=== PATIENT | male | born 1940 | race Caucasian/White ===

== ENCOUNTER 2020-06-06 16:29 | Inpatient (IN) | payer MEDICARE, OTHER, SELFPAY ==
[2020-06-06] VITALS (23 sets, daily range): BP systolic 101–147; BP diastolic 65–80; PULSE 97–119; RESP 16–42; TEMP 36.1–37.3; O2SAT 68–98; BMI 23.2
--- NOTE | ~2020-06-06 | XR_ITS ---
EXAMINATION: XR chest 1V portable DATE: 06/06/2020 17:31 INDICATION: Shortness of breath. TECHNIQUE: A single frontal view of the chest was obtained. COMPARISON: None. FINDINGS: The lung volumes are normal. There are lucencies in the lungs, consistent with emphysema. T here is a diffuse interstitial pattern in the lungs. There is a 6 cm mass overlying the left ilium. N o pleural effusion or pneumothorax. The heart size is normal. Median sternotomy wires and mediastinal surgical clips are seen, likely from prior coronary artery bypass grafting. There is a stent graft i n abdominal aorta. IMPRESSION: 1. 6 cm mass overlying the left hilum, consistent with primary bronchogenic carcinoma. Noncontrast ch est CT is recommended. I called this result to Dr. Box. 2. Diffuse interstitial pattern in the lungs, likely mild pulmonary edema or chronic interstitial rei g disease superimposed on emphysema. Reviewed, dictated and finalized at location [facility] IMPRESSION: 1. 6 cm mass overlying the left hilum, consistent with primary bronchogenic car cinoma. Noncontrast chest CT is recommended. I called this result to Dr. Rudy kahn 2. Diffuse interstitial pattern in the lungs, likely mild pulmonary edema or ch ronic interstitial lung disease superimposed on emphysema.
--- NOTE | ~2020-06-06 | CT_ITS ---
EXAMINATION: CTA chest PE protocol DATE: 06/06/2020 19:34 INDICATION: Shortness of breath. TECHNIQUE: Computed tomography angiography (CTA) of the chest was performed with 100 mL Omnipaque-350 intravenous contrast timed to evaluate the pulmonary arteries. Coronal maximum intensity projection 3D-reconstructions were created by the technologist. Automated exposure control and iterative reconst ruction technique were employed. The dose-length product was 256.11 mGy-cm. COMPARISON: Chest single view 06/06/2020 FINDINGS: There is severe emphysema. There is a 6.8 x 5.1 cm mass in perihilar left upper lobe with c omponent in left mainstem bronchus and involvement of the left main pulmonary artery. There is mild s carring at the lung apices. A calcified right lung nodule is consistent with old granulomatous diseas e. There are groundglass and reticular opacities in all lobes with a lower lung predominance. No pleu ral effusion. The heart size is normal. No pericardial effusion. There are coronary artery calcificat ions. There are changes of coronary bypass grafting. There is no pulmonary embolus. Partially visuali zed is a 7.0 cm fusiform aneurysm of abdominal aorta with stent graft. There are stents in the renal arteries. There is a 2.1 cm mass in right adrenal gland measuring soft tissue attenuation. Pectus exc avatum is noted. There is a chronic burst fracture of T7. There is thoracic kyphosis and mild spondyl osis. IMPRESSION: 1. No pulmonary embolus. 2. 6.8 x 5.1 cm mass in perihilar left lung upper lobe. Bronchoscopy is recommended. 3. 2.1 cm right adrenal mass, which may be an adenoma or metastatic disease. Comparison with outside imaging is recommended. 4. Severe emphysema. 5. Diffuse lung disease with a lower lung predominance, consistent with pulmonary edema versus pneumo bk. Reviewed, dictated and finalized at location [facility] IMPRESSION: 1. No pulmonary embolus. 2. 6.8 x 5.1 cm mass in perihilar left lung upper lobe. Bronchoscopy is recomme nded. 3. 2.1 cm right adrenal mass, which may be an adenoma or metastatic disease. Co mparison with outside imaging is recommended. 4. Severe emphysema. 5. Diffuse lung disease with a lower lung predominance, consistent with pulmona ry edema versus pneumonia.
--- NOTE | ~2020-06-06 | XR_ITS ---
XR chest 1V portable DATE: 06/08/2020 12:21 INDICATION: Covid 19. COPD. Shortness of breath. TECHNIQUE: 05/31/2020 portable AP chest at 1221 hours COMPARISON: 06/06/2020 CT chest FINDINGS: Again noted is a large left upper lobe lung mass superimposing the left hilum and perihilar area. Status post sternotomy Bilateral hyperinflation consistent with COPD. Bilateral chronic interstitial changes likely due to c hronic interstitial fibrosis. Bilateral apical capping, left greater than right. Aortic arch calcification. Distal descending thoracic and abdominal aortic endovascular stent. Diffuse osteopenia. IMPRESSION: Large left upper lobe malignant mass COPD and chronic interstitial changes Reviewed, dictated and finalized at location [facility]
--- NOTE | 2020-06-06 16:52 | ECG_ITS ---
Measurements Intervals Virgie Rate: 99 P: 83 NM: 134 QRS: -33 QRSD: 86 T: -14 QT: 357 QTc: 459 Interpretive Statements SINUS RHYTHM FREQUENT ATRIAL PREMATURE COMPLEXES LEFT AXIS DEVIATION LOW QRS VOLTAGE IN PRECORDIAL LEADS CANNOT RULE OUT SEPTAL INFARCT, AGE INDETERMINATE BORDERLINE T WAVE ABNORMALITY- ANT/INF LEADS BASELINE ARTIFACT- I, II, III, AVR, AVL, AVF, V1-V3, V6 ABNORMAL ECG Electronically Signed On 06-07-2020 8:02:29 [employer]VAGE CLERK by Dmitriy Gleason D.O.
--- NOTE | 2020-06-06 16:58 | ED.SOB ---
HPI - SOB/Dyspnea General Chief Complaint: Shortness of Breath/Dyspnea <Shakeel Box MD - Last Filed: 06/06/20 19:02> Stated Complaint: SOB <Shakeel Box MD - Last Filed: 06/06/20 19:02> History of Present Illness HPI Narrative: Patient is an 80-year-old male who presents ER with shortness of breath. Ongoing for a week. Progressing each day. Saw his primary care doctor couple days ago. He was started on Levaquin as well as albuterol. He was not tested for Covid. Patient reports he has not left his house in 2 months due to fear of Covid. Reports his leaves to get food but otherwise they are isolated no one comes to visit. He has had no fevers or chills or sweats. Denies productive cough but has had frequent cough. In route EMS provided patient with a nebulizer treatment as well as Solu-Medrol. <Shakeel Box MD - Last Filed: 06/06/20 19:02> Related Data Home Medications: Home Medications Medication Instructions Recorded Confirmed albuterol sulfate 2 puff INHALATION TID 06/06/20 06/06/20 aspirin [Adult Aspirin EC Low 81 mg PO DAILY 06/06/20 06/06/20 Strength] atorvastatin 40 mg PO HS 06/06/20 06/06/20 levofloxacin 500 mg PO DAILY 06/06/20 06/06/20 metoprolol succinate 50 mg PO DAILY 06/06/20 06/06/20 <Shakeel Box MD - Last Filed: 06/06/20 19:02> Allergies/Adverse Reactions: Allergies Allergy/AdvReac Type Severity Reaction Status Date / Time No Known Allergies Allergy Verified 06/06/20 17:54 <Shakeel Box MD - Last Filed: 06/06/20 19:02> Review of Systems Review of Systems: All systems reviewed & are unremarkable except as noted in HPI and below <Shakeel Box MD - Last Filed: 06/06/20 19:02> Constitutional: Constitutional: Denies chills, Denies fever(s) and Reports weakness <Shakeel Box MD - Last Filed: 06/06/20 19:02> ENT: Denies nasal congestion and Denies sore throat <Shakeel Box MD - Last Filed: 06/06/20 19:02> Cardiovascular: Cardiovascular: Denies chest pain and Denies radiating jaw, neck or arm pain <Shakeel Box MD - Last Filed: 06/06/20 19:02> Respiratory: Respiratory: Reports cough, Reports dyspnea and Denies wheezing <Shakeel Box MD - Last Filed: 06/06/20 19:02> Gastrointestinal: Gastrointestinal: Denies abdominal pain, Denies diarrhea, Denies nausea and Denies vomiting <Shakeel Box MD - Last Filed: 06/06/20 19:02> PMFSH Past Medical History Medical History: Medical History (Updated 06/06/20 @ 20:43 by Ha Saleem MD) AAA (abdominal aortic aneurysm) H/O: HTN (hypertension) Hypercholesterolemia <Shakeel Box MD - Last Filed: 06/06/20 19:02> Surgical History Surgical History: Surgical History H/O neck surgery History of AAA (abdominal aortic aneurysm) repair Hx of CABG <Shakeel Box MD - Last Filed: 06/06/20 19:02> Family History Family History: Family History (Updated 06/06/20 @ 22:29 by Karmen Umanzor RN) Other Unknown family medical history <Shakeel Box MD - Last Filed: 06/06/20 19:02> Social History Social History: Social History Smoking packs per day: 1 Smoking cigarettes per day: 20.0 Years smoked: 15 Smoking pack-years: 15.00 Smoking status: Former smoker Alcohol intake: never Substance use: never Gender identity (if verbalized by the patient): Male Spiritual care concerns: No <Shakeel Box MD - Last Filed: 06/06/20 19:02> Exam Narrative: Exam Narrative: GENERAL: ill-appearing, well-nourished, and in moderatedistress. HEAD: Normocephalic, atraumatic. EYES: PERRL and EOMI. CHEST: Fine crackles bilateral bases, clear in the apices. Moderate respiratory distress. HEART: Tachycardic and regular. Normal peripheral pulses. ABDOMEN: Soft, nontender, nondistended. EXTREMITIE
--- NOTE | 2020-06-06 17:05 | PC.NURSE ---
RT at bedside for abg's and to place patient on bipap. Pt's blood collected and sent and pt covid swabbed prior to bipap.
--- NOTE | 2020-06-06 17:09 | PC.NURSE ---
Pt placed on bipap per RT 22/02/rate 14/o2 increased to 70%. Pt's pulse ox increases immediately to 89%. Pt states after approx 5 minutes that he's breathing easlier at present.
[2020-06-06 17:12] LABS: Alveolar/Arterial O2 Gradient 241.9 mmHg; Base Excess ABG -2.5 mEq/l (+/-2.0); Carboxyhemoglobin 0.8 % THb (0-2.0); Fractional Inspired Oxygen 44 %; HCO3 ABG 18.2 mEq/l (22.0-26.0); Methemoglobin ABG 0.3 %THb (0-1.5); Oxygen Content ABG 17.7 %vol (16.0-22.0); Oxyhemoglobin 81.8 % THb (90.0-100.0); PO2 FiO2 Ratio Arterial Blood 1.03 %; Reduced Hemoglobin 17.1 %THb (0-5.0); Total Hemoglobin 15.4 g/dL (12.0-18.0)
[2020-06-06 17:14] LABS: Oxygen Saturation ABG 86.9 % (95.0-100.0); PCO2 ABG 23.1 mmHg (35.0-45.0); PO2 ABG 45.5 mmHg (80.0-100.0); pH ABG 7.514 (7.350-7.450)
[2020-06-06 17:15] LABS: Device NASAL CANNULA; Site Drawn RIGHT BRACHIAL
[2020-06-06 17:31] LABS: Hematocrit 42.8 % (42.0-52.0); Hemoglobin 14.8 g/dL (14.0-18.0); Immature Granulocyte Absolute 0.02 K/mm3 (0.00-0.031); Immature Granulocyte Percent A 0.4 % (0-0.5); Immature Platelet Fraction Pct 4.1 % (0.9-11.2); Lymphocytes Percent Auto 29.6 % (18.3-44.2); Mean Corpuscular HGB Conc 34.6 g/dl (32-36); Mean Corpuscular Hemoglobin 33.3 pg (26-34); Mean Corpuscular Volume 96.4 fl (80-100); Mean Platelet Volume 9.8 fl (7.4-10.4); Monocytes Absolute Auto 0.3 K/mm3 (0.1-0.6); Neutrophils Absolute Auto 3.5 K/mm3 (1.3-6.7); Platelet Count Result 156 k/mm3 (150-375); Red Blood Count 4.44 M/mm3 (4.6-6.20); Red Cell Distribution Width 13.3 % (11.5-14.5); White Blood Count 5.4 K/mm3 (4.5-10.0)
[2020-06-06 17:48] LABS: Anion Gap 12 mmol/L (8-16); Blood Urea Nitrogen 28 mg/dL (9-20); Calcium 8.2 mg/dL (8.4-10.2); Carbon Dioxide 23 mmol/L (22-30); Chloride 101 mmol/L (98-107); Estimated Glomerular Filt Rate > 60; Glucose 138 mg/dL (75-110); Magnesium 2.2 mg/dL (1.6-2.3); Potassium 3.7 mmol/L (3.4-5.0); Sodium 136 mmol/L (137-145)
[2020-06-06 17:56] LABS: NT Pro B Type Natriuretic Pept 542 PG/ML (5-100)
[2020-06-06 17:58] LABS: Troponin I 0.026 ng/mL (0.000-0.034)
[2020-06-06 18:05] LABS: Alanine Aminotransferase 19 U/L (4-50); Albumin Level 3.5 g/dL (3.5-5.1); Alkaline Phosphatase 41 U/L (38-126); Aspartate Amino Transferase 58 U/L (17-59); Bilirubin,Total 1.1 mg/dL (0.2-1.3); CRP 6.6 mg/dL (<1.0)
--- NOTE | 2020-06-06 19:40 | PC.NURSE ---
Pt returns from CT, on NRBM. States continues to feel better. Replaced to bipap as ordered. Report to PIERCE Freitas, to continue care.
[2020-06-06 19:51] LABS: Alveolar/Arterial O2 Gradient 398.8 mmHg; Base Excess ABG -5.8 mEq/l (+/-2.0); Carboxyhemoglobin 0.4 % THb (0-2.0); Fractional Inspired Oxygen 70 %; HCO3 ABG 16.8 mEq/l (22.0-26.0); Methemoglobin ABG 0.3 %THb (0-1.5); Oxygen Content ABG 18.6 %vol (16.0-22.0); Oxygen Saturation ABG 95.3 % (95.0-100.0); Oxyhemoglobin 93.1 % THb (90.0-100.0); PCO2 ABG 25.9 mmHg (35.0-45.0); PO2 ABG 72.5 mmHg (80.0-100.0); PO2 FiO2 Ratio Arterial Blood 1.04 %; Reduced Hemoglobin 6.2 %THb (0-5.0); Total Hemoglobin 14.2 g/dL (12.0-18.0); pH ABG 7.429 (7.350-7.450)
[2020-06-06 19:52] LABS: Device NON-INVASIVE VENT; Modified Allen's Test Pass; Non-Invasive Expiratory Pressure 7 CMH2O; Non-Invasive Inspiratory Pressure 14 CMH2O; Non-Invasive Vent Rate 14 /MIN; Site Drawn RIGHT RADIAL
--- NOTE | 2020-06-06 20:29 | PM.IMHP ---
H&P: HPI History of Present Illness Date/Time: 06/06/20 20:29 Chief complaint: COPD exacerbation, lung mass Narrative: This is a pleasant 80 year old male who is known to have CAD+, HTN, hyperlipidemia who presented to the hospital with a complaint of increased shortness of breath and productive cough of bloody sputum for the past 10 days. He reports that he suffered a fall around the time that his symptoms started. Since then he has had a marked decline with increased shortness of breath with minimal exertion. Associated symptoms include wheezing. He denies any past history of COPD but he does have a history of previous cigarette smoking as he smoked 1 ppd x 50 years. He has been isolating himself in his house for the past 2 months and has not had any visitors. He saw his PCP a few days ago who started him on Levaquin. Tonight the patient was having severe shortness of breath. On arrival to the hospital the patient was found to be in acute respiratory failure w/ hypoxemia with a pO2 of 45.5. The patient was initiated on Bipap. CTA chest demonstrated a 6.8 x 5.1 cm mass in perihilar left lung upper lobe and a 2.1 cm right adrenal mass, which may be an adenoma or metastatic disease. On my encounter with the patient he is also complaining of pleuritic chest pain. He denies any recent fevers, sore throat, headache, palpitations, abdominal pain, dysuria, hematuria, nausea, vomiting, diarrhea, or rectal bleeding. No LE swelling is reported. The patient was swabbed for COVID-19 in the ER. Review of Systems Review of Systems: All systems reviewed & are unremarkable except as noted in HPI and below PMFSH Past Medical History Medical History AAA (abdominal aortic aneurysm) CAD (coronary artery disease) COPD (chronic obstructive pulmonary disease) H/O: HTN (hypertension) Hypercholesterolemia Surgical History Surgical History H/O neck surgery History of AAA (abdominal aortic aneurysm) repair Hx of CABG Family History Family History Other Unknown family medical history Social History Social History Smoking packs per day: 1 Smoking cigarettes per day: 20.0 Years smoked: 15 Smoking pack-years: 15.00 Smoking status: Former smoker Alcohol intake: never Substance use: never Gender identity (if verbalized by the patient): Male Spiritual care concerns: No Comments Family medical history is reviewed and noncontributory. Meds Home Medications and Allergies Home Medications Medication Instructions Recorded Confirmed Type albuterol sulfate 2 puff INHALATION TID 06/06/20 06/06/20 History aspirin [Adult Aspirin EC Low 81 mg PO DAILY 06/06/20 06/06/20 History Strength] atorvastatin 40 mg PO HS 06/06/20 06/06/20 History levofloxacin 500 mg PO DAILY 06/06/20 06/06/20 History metoprolol succinate 50 mg PO DAILY 06/06/20 06/06/20 History Allergies Allergy/AdvReac Type Severity Reaction Status Date / Time No Known Allergies Allergy Verified 06/06/20 17:54 Vital Signs Vital Signs - 24 hr 06/06/20 16:35 06/06/20 16:45 06/06/20 17:18 Temperature 36.6 C Pulse Rate 106 H 112 H Respiratory Rate 42 H 28 H Blood Pressure 141/65 H Pulse Oximetry 68 L 75 L 93 06/06/20 17:19 06/06/20 17:30 06/06/20 17:31 Temperature Pulse Rate 119 H 115 H 114 H Respiratory Rate 32 H 26 H 25 H Blood Pressure 123/70 Pulse Oximetry 93 92 93 06/06/20 17:45 06/06/20 17:46 06/06/20 18:00 Temperature Pulse Rate 111 H 117 H 110 H Respiratory Rate 32 H 35 H 26 H Blood Pressure 101/66 Pulse Oximetry 91 93 93 06/06/20 18:01 06/06/20 18:15 06/06/20 18:16 Temperature Pulse Rate 107 H 106 H 104 H Respiratory Rate 25 H 31 H 23 H Blood Pressure 122/68 111/65 Pulse Oximetry 92 96 96
[2020-06-07] VITALS (15 sets, daily range): BP systolic 104–136; BP diastolic 56–86; PULSE 88–110; RESP 20–30; TEMP 35.9–36.8; O2SAT 84–96; BMI 23.1
[2020-06-07 05:32] LABS: Hematocrit 39.9 % (42.0-52.0); Hemoglobin 13.9 g/dL (14.0-18.0); Immature Granulocyte Absolute 0.02 K/mm3 (0.00-0.031); Immature Granulocyte Percent A 0.5 % (0-0.5); Lymphocytes Absolute Auto 0.41 K/mm3 (0.9-3.2); Lymphocytes Percent Auto 9.8 % (18.3-44.2); Mean Corpuscular HGB Conc 34.8 g/dl (32-36); Mean Corpuscular Hemoglobin 32.9 pg (26-34); Mean Corpuscular Volume 94.3 fl (80-100); Mean Platelet Volume 9.7 fl (7.4-10.4); Monocytes Absolute Auto 0.2 K/mm3 (0.1-0.6); Monocytes Percent Auto 3.6 % (2.6-8.5); Neutrophils Absolute Auto 3.6 K/mm3 (1.3-6.7); Neutrophils Percent Auto 86.1 % (45.5-73.1); Platelet Count Result 130 k/mm3 (150-375); Red Blood Count 4.23 M/mm3 (4.6-6.20); Red Cell Distribution Width 13.2 % (11.5-14.5); White Blood Count 4.2 K/mm3 (4.5-10.0)
[2020-06-07 05:44] LABS: Anion Gap 13 mmol/L (8-16); Blood Urea Nitrogen 30 mg/dL (9-20); Calcium 8.3 mg/dL (8.4-10.2); Carbon Dioxide 21 mmol/L (22-30); Chloride 105 mmol/L (98-107); Estimated Glomerular Filt Rate > 60; Glucose 172 mg/dL (75-110); Magnesium 2.4 mg/dL (1.6-2.3); Potassium 3.9 mmol/L (3.4-5.0); Sodium 139 mmol/L (137-145)
--- NOTE | 2020-06-07 06:05 | PCRCNOTE ---
Window of time for administration has passed. See next scheduled administration.
--- NOTE | 2020-06-07 08:30 | PC.NURSE ---
This patient, Anthony Agrawal, was admitted to IMU Room 204-01. Patient/family oriented to hospital policies and general routines including ID bracelet, bed and alarms, visiting hours, pain management, procedures, bathroom and other care routines, personal items, smoking policy, room service/diet, and visiting hours. Patient encouraged to report perceived risks to care and to ask questions if they do not understand what they are told or what they should do.
--- NOTE | 2020-06-07 08:45 | PM.IMPN ---
Progress Note: A&P Assessment and Plan (1) Acute respiratory failure with hypoxemia: Code(s): J96.01 - Acute respiratory failure with hypoxia Status: Acute Assessment and Plan: Secondary lung cancer (2) Lung mass: Code(s): R91.8 - Other nonspecific abnormal finding of lung field Status: Acute Assessment and Plan: -Bronchoscopy planned for Wednesday by Dr. Crum -oncology Dr. Ordonez will follow case after biopsy in outpatient setting (3) Acute exacerbation of chronic obstructive airways disease: Code(s): J44.1 - Chronic obstructive pulmonary disease with (acute) exacerbation Status: Acute Assessment and Plan: -Methylprednisone 40 mg b.i.d. -duonebs, budesonide -p.r.n. albuterol inhaler -appreciate pulmonology recommendations, reviewed note (4) Pleuritic chest pain: Code(s): R07.81 - Pleurodynia Status: Acute Assessment and Plan: Likely secondary to cancer (5) Suspected 2019 novel coronavirus infection: Code(s): Z20.828 - Contact with and (suspected) exposure to other viral communicable diseases Status: Acute Assessment and Plan: Still pending (6) H/O: HTN (hypertension): Code(s): Z86.79 - Personal history of other diseases of the circulatory system Status: Inactive Assessment and Plan: Home metoprolol (7) Hypercholesterolemia: Code(s): E78.00 - Pure hypercholesterolemia, unspecified Status: Inactive Assessment and Plan: Continue statin Additional Plan Diet: Regular DVT prophylaxis: SCDs, there is concern for hemoptysis Code status: Full code Disposition: Pending clinical course, bronchoscopy Wednesday Subjective Date/time seen: 06/07/20 08:45 Patient examined. He is on BiPAP breathing comfortably. Will try to wean him down to nasal cannula or non-rebreather. I told him that CT findings of lung cancer and we need to decide now what our goals will be. Our options are either to go ahead and biopsy the mass, proceed with surgery, chemotherapy/radiation or go down the route palliative care and hospice. Patient would like to talk to his family before making this decision. I updated his daughter Kenya and . Patient denies fever, chills, nausea, vomiting. He endorses hemoptysis, dyspnea. Patient would like to go and biopsy mass and workup lung cancer. I discussed with Dr. Ordonez oncology who will follow-up outpatient. Will obtain CT abdomen to further evaluate for Mets. Plan for bronchoscopy on Wednesday for biopsy. Review of Systems Review of Systems: All systems reviewed & are unremarkable except as noted in HPI and below Exam Narrative: Exam Narrative: - GENERAL: No acute distress. Well-nourished. - EYES: EOMI. Anicteric. - HENT: Moist mucous membranes. - LUNGS: Diminished lung sounds, some wheezing - CARDIOVASCULAR: Regular rate and rhythm. - ABDOMEN: Soft, non-tender and non-distended. No palpable masses. - EXTREMITIES: Peripheral pulses 2+. Non-tender. - NEUROLOGIC: No focal neurological deficits. CN II-XII grossly intact. - PSYCHIATRIC: Awake, Alert and oriented x 3. Appropriate mood and affect. Objective Data Vital Signs Vital Signs: Vital Signs - 24 hr 06/06/20 16:35 06/06/20 16:45 06/06/20 17:18 Temperature 36.6 C Pulse Rate 106 H 112 H Respiratory Rate 42 H 28 H Blood Pressure 141/65 H Pulse Oximetry 68 L 75 L 93 06/06/20 17:19 06/06/20 17:30 06/06/20 17:31 Temperature Pulse Rate 119 H 115 H 114 H Respiratory Rate 32 H 26 H 25 H Blood Pressure 123/70 Pulse Oximetry 93 92 93 06/06/20 17:45 06/06/20 17:46 06/06/20 18:00 Temperature Pulse Rate 111 H 117 H 110 H Respiratory Rate 32 H 35 H 26 H Blood Pressure 101/66 Pulse Oximetry 91 93 93 06/06/20 18:01 06/06/20 18:15 06/06/20 18:16 Temperature Pulse Rate 107 H 106 H 104 H Respiratory Rate 25 H 31 H 23 H Blood Pressure 122/68 111/65 Pulse Oximetry 92 96 96 1
--- NOTE | 2020-06-07 10:37 | PM.CNPUL ---
Assessment and Plan Assessment and plan (1) Acute respiratory failure with hypoxemia: Code(s): J96.01 - Acute respiratory failure with hypoxia Status: Acute Assessment and Plan: Likely due to COPD in background of pulmonary fibrosis which appears to have an IPF/UIP pattern but is mild (2) Acute exacerbation of chronic obstructive airways disease: Code(s): J44.1 - Chronic obstructive pulmonary disease with (acute) exacerbation Status: Acute Assessment and Plan: - solumedrol 40 mg IV Q12h - albuterol 2.5 mg/Atrovent 0.5 mg Q6h scheduled - pulmicort 0.5 mg Q12h - No signs of pneumonia or acute bacterial bronchitis, hence no need for antibiotics at this point. (3) Lung mass: Code(s): R91.8 - Other nonspecific abnormal finding of lung field Status: Acute Assessment and Plan: LINA perhilar mass appears to be invading the bronchial lumen. Very suspcious for primary Lung CA. Likely small cell vs squamous cell. - I spoke to him about his diagnosis and need for bronchoscopy for diagnostic purposes and he would like to proceed. - I've set him up for a Bronchoscopy on WednesdayJune 11 at 1 pm. Last dose of ASA he says was yesterday 06/06/20. Hopefully his oxygen requirements will be much less by then. History of Present Illness History of Present Illness Consult date: 06/07/20 Chief complaint: COPD exacerbation, lung mass Narrative: 80 y/o male former chronic smoker presents with increased dyspnea and cough for the past few days and hypoxemic respiratory failure. He apparently was treated with Levaquin as an outpatient with no improvement. He denies fever, chills, night sweats, loss of taste or smell, sore throat, runny nose, headaches, diarrhea, n/v. He is currently on a non rebreather face mask and appears comfortable. He was to have a large left perihilar mass on CT chest along with emphysematous changes and some pulmonary fibrosis towards the basil segments of the lungs. He's never been told he had COPD. He has 60 pack year smoking history and quit smoking about 6 years ago. He denies hemoptysis or significant weight loss. His SARS-CoV-2 RT PCR is currently pending. Review of Systems Review of Systems: All systems reviewed & are unremarkable except as noted in HPI and below PMFSH Past Medical History Medical History (Updated 06/06/20 @ 20:43 by Ha Saleem MD) AAA (abdominal aortic aneurysm) H/O: HTN (hypertension) Hypercholesterolemia Surgical History Surgical History H/O neck surgery History of AAA (abdominal aortic aneurysm) repair Hx of CABG Family History Family History (Updated 06/06/20 @ 22:29 by Karmen Umanzor RN) Other Unknown family medical history Social History Social History Smoking packs per day: 1 Smoking cigarettes per day: 20.0 Years smoked: 15 Smoking pack-years: 15.00 Smoking status: Former smoker Alcohol intake: never Substance use: never Gender identity (if verbalized by the patient): Male Spiritual care concerns: No Meds Home Medications and Allergies Home Medications Medication Instructions Recorded Confirmed Type albuterol sulfate 2 puff INHALATION TID 06/06/20 06/06/20 History aspirin [Adult Aspirin EC Low 81 mg PO DAILY 06/06/20 06/06/20 History Strength] atorvastatin 40 mg PO HS 06/06/20 06/06/20 History levofloxacin 500 mg PO DAILY 06/06/20 06/06/20 History metoprolol succinate 50 mg PO DAILY 06/06/20 06/06/20 History Allergies Allergy/AdvReac Type Severity Reaction Status Date / Time No Known Allergies Allergy Verified 06/06/20 17:54 Vital Signs Vital Signs - 24 hr 06/06/20 16:35 06/06/20 16:45 06/06/20 17:18 Temperature 36.6 C Pulse Rate 106 H 112 H Respiratory Rate 42 H 28 H Blood Pressure 141/65 H Pulse Oximetry 68 L 75 L 93 06/06/20 17:19 06/06/20 17
[2020-06-07] MEDS: METOPROLOL SUCCINATE EXT REL 50 MG TABCR PO (10:40)
[2020-06-07] MEDS: methylPREDNISolone SOD SUCC 40 MG VIAL IV PUSH ×2 (11:49→18:35)
[2020-06-07] MEDS: IPRATROPIUM BR 0.02% INH SOLN 0.5 MG/2.5 ML VIAL INHALATION (13:35)
[2020-06-07] MEDS: ALBUTEROL SULFATE NEB 2.5 MG/0.5 ML INH INHALATION (13:35)
[2020-06-07 17:04] LABS: SARS-CoV-2 RNA PCR Positive
[2020-06-07] MEDS: ATORVASTATIN 40 MG TABLET PO (21:50)
[2020-06-08] VITALS (18 sets, daily range): BP systolic 116–150; BP diastolic 56–77; PULSE 74–114; RESP 12–29; TEMP 35.6–36.7; O2SAT 52–94
--- NOTE | 2020-06-08 00:50 | PCRCNOTE ---
Window of time for administration has passed. See next scheduled administration.
[2020-06-08] MEDS: ALBUTEROL SULFATE NEB 2.5 MG/0.5 ML INH INHALATION (04:14)
[2020-06-08] MEDS: IPRATROPIUM BR 0.02% INH SOLN 0.5 MG/2.5 ML VIAL INHALATION (04:14)
[2020-06-08] MEDS: METOPROLOL SUCCINATE EXT REL 50 MG TABCR PO (07:45)
[2020-06-08] MEDS: methylPREDNISolone SOD SUCC 40 MG VIAL IV PUSH (07:46)
--- NOTE | 2020-06-08 07:53 | PM.IMPN ---
Progress Note: A&P Assessment and Plan (1) Pneumonia due to COVID-19 virus: Code(s): U07.1 - COVID-19; J12.89 - Other viral pneumonia Status: Acute Assessment and Plan: -COVID-19 positive 06/06/2020 -starting remdesivir, dexamethasone, convalescent plasma 06/08- -supportive care keep oxygen saturation greater than 90% -patient is currently on BiPAP (2) Acute respiratory failure with hypoxemia: Code(s): J96.01 - Acute respiratory failure with hypoxia Status: Acute Assessment and Plan: Secondary lung cancer and COVID-19 (3) Lung mass: Code(s): R91.8 - Other nonspecific abnormal finding of lung field Status: Acute Assessment and Plan: -Bronchoscopy planned for Wednesday by Dr. Crum, patient may be too unstable for bronchoscopy, will see -oncology Dr. Ordonez will follow case after biopsy in outpatient setting (4) Pleuritic chest pain: Code(s): R07.81 - Pleurodynia Status: Acute Assessment and Plan: Likely secondary to cancer (5) H/O: HTN (hypertension): Code(s): Z86.79 - Personal history of other diseases of the circulatory system Status: Inactive Assessment and Plan: Home metoprolol (6) Hypercholesterolemia: Code(s): E78.00 - Pure hypercholesterolemia, unspecified Status: Inactive Assessment and Plan: Continue statin Additional Plan Diet: Regular if able to get off BiPAP DVT prophylaxis: SCDs, no blood thinners for bronchoscopy Code status: Full code Disposition: Pending clinical course, bronchoscopy Wednesday patient is deteriorating with COVID-19, very poor prognosis Subjective Date/time seen: 06/08/20 07:53 Patient's prognosis is very poor. Patient's COVID-19 positive, started remdesivir/dexamethasone/convalescent plasma. Review of Systems Review of Systems: All systems reviewed & are unremarkable except as noted in HPI and below Exam Narrative: Exam Narrative: - GENERAL: Ill-appearing male on BiPAP - EYES: EOMI. Anicteric. - HENT: Moist mucous membranes. - LUNGS: Diminished lung sounds throughout - CARDIOVASCULAR: Regular rate and rhythm. - ABDOMEN: Soft, non-tender and non-distended. No palpable masses. - EXTREMITIES: Peripheral pulses 2+. Non-tender. - NEUROLOGIC: No focal neurological deficits. CN II-XII grossly intact. - PSYCHIATRIC: Awake, Alert and oriented x 3. Appropriate mood and affect. Objective Data Vital Signs Vital Signs: Vital Signs - 24 hr 06/07/20 08:00 06/07/20 10:00 06/07/20 10:40 Temperature 36.3 C L Pulse Rate 95 94 103 H Respiratory Rate 24 H Blood Pressure 104/56 L Pulse Oximetry 91 06/07/20 12:00 06/07/20 14:00 06/07/20 16:00 Temperature 36.8 C Pulse Rate 95 110 H 100 Respiratory Rate 20 Blood Pressure 125/63 Pulse Oximetry 87 L 87 L 06/07/20 17:55 06/07/20 18:00 06/07/20 20:00 Temperature 36.2 C L 36.1 C L Pulse Rate 107 H 109 H 100 Respiratory Rate 22 H 24 H Blood Pressure 114/67 136/65 Pulse Oximetry 88 L 89 L 06/07/20 21:30 06/08/20 00:00 06/08/20 04:00 Temperature 36.4 C L 36.4 C Pulse Rate 100 99 Respiratory Rate 24 H 29 H Blood Pressure 150/75 H 137/75 Pulse Oximetry 84 L 94 92 06/08/20 04:28 06/08/20 05:31 06/08/20 07:45 Temperature Pulse Rate 98 114 H Respiratory Rate 23 H Blood Pressure Pulse Oximetry 92 89 L Intake/Output Intake/Output: Intake & Output 06/05/20 06/06/20 06/07/20 06/08/20 23:59 23:59 23:59 23:59 Intake Total 390 250 Output Total 625 375 Balance -235 -125 Meds/Results Medications: Active Medications Generic Name Dose Route Start Last Admin Trade Name Freq PRN Reason Stop Dose Admin Acetaminophen 650 mg 06/06/20 20:44 Acetaminophen 325 Mg Tablet PO Q4H PRN Mild Pain (1-3) or Fever Albuterol 2.5 mg 06/07/20 14:00 06/08/20 04:14 Albuterol Sulfate Neb 2.5 Mg/0.5 Ml Inh INHALATION 2.5 mg Q6HRT BOBBI Administration
[2020-06-08] MEDS: REMDESIVIR 200 MG/NS 250 ML 200 MG/250 ML BAG 250 MG IVPB (13:08)
[2020-06-08] MEDS: ACETAMINOPHEN 325 MG TABLET 650 MG PO (13:09)
[2020-06-08] MEDS: DEXAMETHASONE SOD PHOS INJ 4 MG/ML VIAL 6 MG IV PUSH (13:09)
--- NOTE | 2020-06-08 13:20 | PM.PNPUL ---
Progress Note: A&P Assessment and Plan (1) Lung mass: Code(s): R91.8 - Other nonspecific abnormal finding of lung field Status: Acute Assessment and Plan: - Will hold off Bronchoscopy for 4-6 weeks if he survives from COVID-19 (2) Acute exacerbation of chronic obstructive airways disease: Code(s): J44.1 - Chronic obstructive pulmonary disease with (acute) exacerbation Status: Acute Assessment and Plan: continue duonebs Q6h along with pulmicort 0.5 mg bid (3) Acute respiratory failure with hypoxemia: Code(s): J96.01 - Acute respiratory failure with hypoxia Status: Acute (4) Pneumonia due to COVID-19 virus: Code(s): U07.1 - COVID-19; J12.89 - Other viral pneumonia Status: Acute Assessment and Plan: - agree with Dexamethasone 6 mg IV daily for 10 days - agree with Remdesivir for 5-10 days - will order Convalescent plasma as he symptoms began about one week ago and given the severity of his illness - Prognosis is poor and fadi discussions about end of life care including intubation and CPR should be had. I would recommend DNR/DNI - resume DVT prophylaxis with Lovenox given COVID and postponement of Bronchscopy Subjective Date/time seen: 06/08/20 13:20 Interval history: 80 y/o male with COPD admitted with severe hypoxemic respiratory failure and LINA lung mass. Now SARS-CoV-2 positive. Solumedrol changed to Dexamethasone and Remdesivir started yesterday. He was tried on BIPAP but the mask caused significant irritation to the bridge of the nose and he could not tolerate it. He's currently on max dose of high flow plus a 100% non rebreather face mask. He's short of breath but alert and awake Review of Systems Review of Systems: All systems reviewed & are unremarkable except as noted in HPI and below Exam Const: General: cooperative, healthy appearing, comfortable, no acute distress, well developed, alert, awake and Physically active Nutritional Appearance: thin Orientation/consciousness: oriented to person, oriented to place, oriented to time and patient oriented x3 Eyes: General: appearance normal, both eyes and all related structures Neck: Neck: normal visual inspection, trachea midline and supple Resp: Effort & Inspection: normal respiratory effort and able to speak in complete sentences Auscultation: wheezes, breath sounds absent and diminished lung sounds Cardio: Jugular venous distension: no JVD Rate: regular rate Rhythm: regular rhythm Heart sounds: S1 normal heart sound present and S2 normal heart sound present GI: Inspection: normal to inspection Auscultation: normal bowel sounds Skin: General skin exam: normal color and no rashes or lesions noted Neuro: General: oriented to person, oriented to place, oriented to time and patient oriented x3 Cognition (Neuro): normal cognition Speech: normal speech Extrem: General: no clubbing, cyanosis or edema Psych: Appearance: grossly normal and well kempt Mental Status: mental status grossly normal Objective Data Vital Signs Vital Signs: Vital Signs - 24 hr 06/07/20 14:00 06/07/20 16:00 06/07/20 17:55 Temperature 36.2 C L Pulse Rate 110 H 100 107 H Respiratory Rate 22 H Blood Pressure 114/67 Pulse Oximetry 87 L 88 L 06/07/20 18:00 06/07/20 20:00 06/07/20 21:30 Temperature 36.1 C L Pulse Rate 109 H 99 Respiratory Rate 24 H Blood Pressure 136/65 Pulse Oximetry 89 L 84 L 06/07/20 22:00 06/08/20 00:00 06/08/20 02:00 Temperature 36.4 C L Pulse Rate 96 96 99 Respiratory Rate 24 H Blood Pressure 150/75 H Pulse Oximetry 94 06/08/20 04:00 06/08/20 04:28 06/08/20 05:31 Temperature 36.4 C Pulse Rate 103 H 98 Respiratory Rate 29 H 23 H Blood Pressure 137/75 Pulse Oximetry 92 92 89 L 06/08/20 06:00 06/08/20 07:45 06/08/20 08:00 Temperature Pulse Rate 112 H 114 H 108 H Respiratory Rate Blood Pressure Pulse Oximetry 06/08/20 09
[2020-06-08] MEDS: LORazepam INJ (*CRX) 2 MG/ML VIAL 0.5 MG IV PUSH ×5 (18:15→23:37)
[2020-06-08] MEDS: MORPHINE SULFATE (*CRX) 4 MG/ML INJ IV PUSH ×5 (18:15→23:37)
--- NOTE | 2020-06-09 00:02 | PC.NURSE ---
This patient, Anthony Agrawal, was transferred to [ [id number]] on 06/08/20 at 2310. Personal belongings sent with patient. Report given to [ Kaylene]. Appropriate documentation sent with patient.
[2020-06-09] MEDS: MORPHINE SULFATE (*CRX) 4 MG/ML INJ IV PUSH ×9 (02:45→22:20)
[2020-06-09] MEDS: LORazepam INJ (*CRX) 2 MG/ML VIAL 0.5 MG IV PUSH ×2 (04:39→11:04)
[2020-06-09 07:09] LABS: Alanine Aminotransferase 15 U/L (4-50)
[2020-06-09 08:00] VITALS: BP 113/59; PULSE 114; PULSE 91; RESP 13; RESP 14; TEMP 36.1; O2SAT 52; O2SAT 59
--- NOTE | 2020-06-09 12:03 | PM.IMPN ---
Progress Note: A&P Assessment and Plan (1) Comfort measures only status: Code(s): Z51.5 - Encounter for palliative care Status: Acute Assessment and Plan: -patient switch to comfort care 06/08/2020 -Ativan and morphine as needed -stop all nonessential medications (2) Pneumonia due to COVID-19 virus: Code(s): U07.1 - COVID-19; J12.89 - Other viral pneumonia Status: Acute Assessment and Plan: -COVID-19 positive 06/06/2020 (3) Lung mass: Code(s): R91.8 - Other nonspecific abnormal finding of lung field Status: Acute Assessment and Plan: -comfort care -newly found lung cancer with smoking history (4) Acute respiratory failure with hypoxemia: Code(s): J96.01 - Acute respiratory failure with hypoxia Status: Acute Assessment and Plan: Secondary lung cancer and COVID-19 Additional Plan # chronic conditions-stopping all nonessential medications -hyperlipidemia -hypertension Code status: Do not resuscitate Disposition: Comfort care measures Subjective Date/time seen: 06/09/20 12:03 Patient examined. History evening he was switched to comfort care measures after extensive discussion with family about goals of care. Patient is COVID-19 and underlying newly diagnosed lung cancer. Patient unresponsive, respirations decreased to less than 10 times a minute. Continuing comfort care measures with morphine and Ativan as needed. Review of Systems Review of Systems: ROS unobtainable: Yes unobtainable due to medical condition Exam Narrative: Exam Narrative: - GENERAL: Ill-appearing male breathing comfortably - LUNGS: Diminished lung sounds - CARDIOVASCULAR: Regular rate and rhythm. - ABDOMEN: Soft, non-tender and non-distended. - NEUROLOGIC: Unresponsive Objective Data Vital Signs Vital Signs: Vital Signs - 24 hr 06/08/20 12:15 06/08/20 16:00 06/08/20 19:40 Temperature 36.0 C L Pulse Rate 97 90 74 Respiratory Rate 24 H 24 H 12 Blood Pressure 130/73 Pulse Oximetry 89 L 89 L 06/08/20 20:00 06/08/20 20:34 06/08/20 23:05 Temperature 36.3 C L 35.6 C L Pulse Rate 91 84 91 Respiratory Rate 12 13 14 Blood Pressure 116/56 L 122/62 Pulse Oximetry 66 L 57 L 06/08/20 23:15 06/09/20 08:00 Temperature Pulse Rate 91 Respiratory Rate 14 Blood Pressure Pulse Oximetry 52 L 52 L Intake/Output Intake/Output: Intake & Output 06/06/20 06/07/20 06/08/20 06/09/20 23:59 23:59 23:59 23:59 Intake Total 390 500 Output Total 625 375 Balance -235 125 Meds/Results Medications: Active Medications Generic Name Dose Route Start Last Admin Trade Name Freq PRN Reason Stop Dose Admin Acetaminophen 650 mg 06/06/20 20:44 06/08/20 13:09 Acetaminophen 325 Mg Tablet PO 650 mg Q4H PRN Administration Mild Pain (1-3) or Fever Lorazepam 0.5 mg 06/08/20 16:57 06/09/20 11:04 Lorazepam Inj (*Crx) 2 Mg/Ml Vial IV PUSH 0.5 mg Q1H PRN Administration Anxiety Morphine Sulfate 4 mg 06/08/20 15:28 06/09/20 09:37 Morphine Sulfate (*Crx) 4 Mg/Ml Inj IV PUSH 4 mg Q1H PRN Administration air hunger Silicone 1 each 06/07/20 19:38 Silicon, Colloid Drsg (Mepilex Lite 6x6) TOPICAL PRN PRN IF NOT INTACT Radiology Results: ITS Impressions Chest CTA 06/06/20 19:38 IMPRESSION: 1. No pulmonary embolus. 2. 6.8 x 5.1 cm mass in perihilar left lung upper lobe. Bronchoscopy is recommended. 3. 2.1 cm right adrenal mass, which may be an adenoma or metastatic disease. Comparison with outside imaging is recommended. 4. Severe emphysema. 5. Diffuse lung disease with a lower lung predominance, consistent with pulmonary edema versus pneumonia. Chest X-Ray 06/08/20 14:36 IMPRESSION: Large left upper lobe malignant mass COPD and chronic interstitial changes Labs Labs: Laboratory Results - last 24 hr 06/08/20 06/09/20 14:52 06:06 ALT 15 Blood Type O Posit
--- NOTE | 2020-06-09 19:08 | PM.PNPUL ---
Progress Note: A&P Assessment and Plan (1) Pneumonia due to COVID-19 virus: Code(s): U07.1 - COVID-19; J12.89 - Other viral pneumonia Status: Acute Assessment and Plan: Agree with comfort measures. Subjective Date/time seen: 06/09/20 19:08 Interval history: Patient changed to comfort measure yesterday and is slowly passing away but appears comfortable off oxyen Review of Systems Review of Systems: All systems reviewed & are unremarkable except as noted in HPI and below Exam Narrative: Exam Narrative: - GENERAL: Ill-appearing male breathing comfortably - LUNGS: Diminished lung sounds - CARDIOVASCULAR: Regular rate and rhythm. - ABDOMEN: Soft, non-tender and non-distended. - NEUROLOGIC: Unresponsive Objective Data Vital Signs Vital Signs: Vital Signs - 24 hr 06/08/20 19:40 06/08/20 20:00 06/08/20 20:34 Temperature 36.3 C L Pulse Rate 74 91 84 Respiratory Rate 12 12 13 Blood Pressure 116/56 L Pulse Oximetry 66 L 06/08/20 23:05 06/08/20 23:15 06/09/20 08:00 Temperature 35.6 C L 36.1 C L Pulse Rate 91 114 H Respiratory Rate 14 13 Blood Pressure 122/62 113/59 L Pulse Oximetry 57 L 52 L 59 L Intake/Output Intake/Output: Intake & Output 06/06/20 06/07/20 06/08/20 06/09/20 23:59 23:59 23:59 23:59 Intake Total 390 500 25 Output Total 625 375 350 Balance -235 125 -325 Meds/Results Medications: Active Medications Generic Name Dose Route Start Last Admin Trade Name Freq PRN Reason Stop Dose Admin Acetaminophen 650 mg 06/06/20 20:44 06/08/20 13:09 Acetaminophen 325 Mg Tablet PO 650 mg Q4H PRN Administration Mild Pain (1-3) or Fever Lorazepam 0.5 mg 06/08/20 16:57 06/09/20 11:04 Lorazepam Inj (*Crx) 2 Mg/Ml Vial IV PUSH 0.5 mg Q1H PRN Administration Anxiety Morphine Sulfate 4 mg 06/08/20 15:28 06/09/20 18:25 Morphine Sulfate (*Crx) 4 Mg/Ml Inj IV PUSH 4 mg Q1H PRN Administration air hunger Silicone 1 each 06/07/20 19:38 Silicon, Colloid Drsg (Mepilex Lite 6x6) TOPICAL PRN PRN IF NOT INTACT Radiology Results: ITS Impressions Chest CTA 06/06/20 19:38 IMPRESSION: 1. No pulmonary embolus. 2. 6.8 x 5.1 cm mass in perihilar left lung upper lobe. Bronchoscopy is recommended. 3. 2.1 cm right adrenal mass, which may be an adenoma or metastatic disease. Comparison with outside imaging is recommended. 4. Severe emphysema. 5. Diffuse lung disease with a lower lung predominance, consistent with pulmonary edema versus pneumonia. Chest X-Ray 06/08/20 14:36 IMPRESSION: Large left upper lobe malignant mass COPD and chronic interstitial changes Labs Labs: Laboratory Results - last 24 hr 06/09/20 06:06 ALT 15
[2020-06-09 20:00] VITALS: BP 106/53; PULSE 60; RESP 12; TEMP 36.9; O2SAT 61
[2020-06-10] MEDS: MORPHINE SULFATE (*CRX) 4 MG/ML INJ IV PUSH (06:28)
[2020-06-10 08:00] VITALS: BP 77/43; PULSE 104; RESP 16; TEMP 36.6; O2SAT 77
--- NOTE | 2020-06-10 13:40 | PM.IMPN ---
Progress Note: A&P Assessment and Plan (1) Comfort measures only status: Code(s): Z51.5 - Encounter for palliative care Status: Acute Assessment and Plan: -patient switch to comfort care 06/08/2020 -Ativan and morphine as needed -stop all nonessential medications (2) Pneumonia due to COVID-19 virus: Code(s): U07.1 - COVID-19; J12.89 - Other viral pneumonia Status: Acute Assessment and Plan: -COVID-19 positive 06/06/2020 (3) Lung mass: Code(s): R91.8 - Other nonspecific abnormal finding of lung field Status: Acute Assessment and Plan: -comfort care -newly found lung cancer with smoking history (4) Acute respiratory failure with hypoxemia: Code(s): J96.01 - Acute respiratory failure with hypoxia Status: Acute Assessment and Plan: Secondary lung cancer and COVID-19 Additional Plan # chronic conditions-stopping all nonessential medications -hyperlipidemia -hypertension Code status: Do not resuscitate Disposition: Comfort care measures, transition to hospice Subjective Date/time seen: 06/10/20 13:40 Patient examined. Patient on comfort care measures, will transition to inpatient hospice. Family can come bedside as he is imminent. Patient has become hypotensive and episodes of apnea, and is nearing end of life. Review of Systems Review of Systems: ROS unobtainable: Yes unobtainable due to medical condition Exam Narrative: Exam Narrative: - GENERAL: Ill-appearing male breathing comfortably - LUNGS: Diminished lung sounds - CARDIOVASCULAR: Regular rate and rhythm. - ABDOMEN: Soft, non-tender and non-distended. - NEUROLOGIC: Unresponsive Objective Data Vital Signs Vital Signs: Vital Signs - 24 hr 06/09/20 20:00 06/10/20 08:00 Temperature 36.9 C 36.6 C Pulse Rate 60 104 H Respiratory Rate 12 16 Blood Pressure 106/53 L 77/43 L Pulse Oximetry 61 L 77 L Intake/Output Intake/Output: Intake & Output 06/07/20 06/08/20 06/09/20 06/10/20 23:59 23:59 23:59 23:59 Intake Total 390 500 25 Output Total 625 375 350 800 Balance -235 125 325 -800 Meds/Results Medications: Active Medications Generic Name Dose Route Start Last Admin Trade Name Freq PRN Reason Stop Dose Admin Acetaminophen 650 mg 06/06/20 20:44 06/08/20 13:09 Acetaminophen 325 Mg Tablet PO 650 mg Q4H PRN Administration Mild Pain (1-3) or Fever Lorazepam 0.5 mg 06/08/20 16:57 06/09/20 11:04 Lorazepam Inj (*Crx) 2 Mg/Ml Vial IV PUSH 0.5 mg Q1H PRN Administration Anxiety Morphine Sulfate 4 mg 06/08/20 15:28 06/10/20 06:28 Morphine Sulfate (*Crx) 4 Mg/Ml Inj IV PUSH 4 mg Q1H PRN Administration air hunger Silicone 1 each 06/07/20 19:38 Silicon, Colloid Drsg (Mepilex Lite 6x6) TOPICAL PRN PRN IF NOT INTACT Radiology Results: ITS Impressions Chest CTA 06/06/20 19:38 IMPRESSION: 1. No pulmonary embolus. 2. 6.8 x 5.1 cm mass in perihilar left lung upper lobe. Bronchoscopy is recommended. 3. 2.1 cm right adrenal mass, which may be an adenoma or metastatic disease. Comparison with outside imaging is recommended. 4. Severe emphysema. 5. Diffuse lung disease with a lower lung predominance, consistent with pulmonary edema versus pneumonia. Chest X-Ray 06/08/20 14:36 IMPRESSION: Large left upper lobe malignant mass COPD and chronic interstitial changes Quality VTE Prophylaxis VTE prophylaxis: mechanical ordered
[2020-06-10 20:00] VITALS: BP 136/110; PULSE 107; RESP 12; TEMP 37.1; O2SAT 56
[2020-06-11 08:00] VITALS: BP 119/87; PULSE 105; RESP 12; TEMP 36.3; O2SAT 56; O2SAT 88
--- NOTE | 2020-06-11 15:57 | PM.IMPN ---
Progress Note: A&P Assessment and Plan (1) Comfort measures only status: Code(s): Z51.5 - Encounter for palliative care Status: Acute Assessment and Plan: -patient switch to comfort care 06/08/2020 -Ativan and morphine ordered for comfort -on comfort measure family not decided on hospice yet (2) Pneumonia due to COVID-19 virus: Code(s): U07.1 - COVID-19; J12.89 - Other viral pneumonia Status: Acute Assessment and Plan: -COVID-19 positive 06/06/2020 (3) Lung mass: Code(s): R91.8 - Other nonspecific abnormal finding of lung field Status: Acute Assessment and Plan: -newly found lung cancer with smoking history (4) Acute respiratory failure with hypoxemia: Code(s): J96.01 - Acute respiratory failure with hypoxia Status: Acute Assessment and Plan: Secondary lung cancer and COVID-19 Subjective Date/time seen: 06/11/20 15:58 Interval history: Patient on comfort care measures, will transition to inpatient hospice. Pt is on morphine and ativan. Pt SOB secondary to lung cancer and COVID-19. Pt is comfortable in the room, poor prognosis. frail elderly shallow breathing. Review of Systems Review of Systems: ROS unobtainable: Yes unobtainable due to medical condition Exam Narrative: Exam Narrative: - GENERAL: frail elderly shallow breathing - LUNGS: lung with shallow breathing and retractions - CARDIOVASCULAR: Regular rate and rhythm. - ABDOMEN: Soft, non-tender and non-distended. - NEUROLOGIC: Unresponsive Objective Data Vital Signs Vital Signs: Vital Signs - 24 hr 06/10/20 20:00 06/11/20 08:00 Temperature 37.1 C 36.3 C L Pulse Rate 107 H 105 H Respiratory Rate 12 12 Blood Pressure 136/110 H 119/87 Pulse Oximetry 56 L 56 L Intake/Output Intake/Output: Intake & Output 06/08/20 06/09/20 06/10/20 06/11/20 23:59 23:59 23:59 23:59 Intake Total 500 25 Output Total 375 350 850 300 Balance 125 -325 -850 -300 Meds/Results Medications: Active Medications Generic Name Dose Route Start Last Admin Trade Name Freq PRN Reason Stop Dose Admin Acetaminophen 650 mg 06/06/20 20:44 06/08/20 13:09 Acetaminophen 325 Mg Tablet PO 650 mg Q4H PRN Administration Mild Pain (1-3) or Fever Lorazepam 0.5 mg 06/08/20 16:57 06/09/20 11:04 Lorazepam Inj (*Crx) 2 Mg/Ml Vial IV PUSH 0.5 mg Q1H PRN Administration Anxiety Morphine Sulfate 4 mg 06/08/20 15:28 06/10/20 06:28 Morphine Sulfate (*Crx) 4 Mg/Ml Inj IV PUSH 4 mg Q1H PRN Administration air hunger Silicone 1 each 06/07/20 19:38 Silicon, Colloid Drsg (Mepilex Lite 6x6) TOPICAL PRN PRN IF NOT INTACT Radiology Results: ITS Impressions Chest CTA 06/06/20 19:38 IMPRESSION: 1. No pulmonary embolus. 2. 6.8 x 5.1 cm mass in perihilar left lung upper lobe. Bronchoscopy is recommended. 3. 2.1 cm right adrenal mass, which may be an adenoma or metastatic disease. Comparison with outside imaging is recommended. 4. Severe emphysema. 5. Diffuse lung disease with a lower lung predominance, consistent with pulmonary edema versus pneumonia. Chest X-Ray 06/08/20 14:36 IMPRESSION: Large left upper lobe malignant mass COPD and chronic interstitial changes Quality VTE Prophylaxis VTE prophylaxis: mechanical ordered
--- NOTE | 2020-07-03 13:54 | P.DS_ITS ---
DS: Admitting Diagnosis Admitting Diagnosis Admitting Diagnosis: COVID-19 DS: Discharge Diagnosis Discharge Diagnosis (1) Palliative care by specialist: Code(s): Z51.5 - Encounter for palliative care Status: Acute Assessment and Plan: Palliative team/ hospice team consulted for lung mass, hypoxia and covid pos itive patient Pt has been accepted to hospice team today. (2) Comfort measures only status: Code(s): Z51.5 - Encounter for palliative care Status: Acute Assessment and Plan: -patient switch to comfort care 06/08/2020 -Ativan and morphine ordered for comfort (3) Pneumonia due to COVID-19 virus: Code(s): U07.1 - COVID-19; J12.89 - Other viral pneumonia Status: Acute Assessment and Plan: Covid positive patient elderly frail family accepted hospice care (4) Lung mass: Code(s): R91.8 - Other nonspecific abnormal finding of lung field Status: Acute Assessment and Plan: -newly found lung cancer with smoking history DS: Summary Hospital Course Hospital Course: Patient on comfort care measures, will transition to inpatient hospice. Pt is on morphine and ativan. Pt SOB secondary to lung cancer and COVID-19. Pt is comfortable in the room, poor prognosis. frail elderly shallow breathing. Accepted by hospice. Time Spent with Patient Time attestation: Total time spent providing and/or coordinating discharge services:40 minutes on day of discharge Exam Narrative: Exam Narrative: - GENERAL: frail elderly shallow breathing - LUNGS: lung with shallow breathing and retractions - CARDIOVASCULAR: Regular rate and rhythm. - ABDOMEN: Soft, non-tender and non-distended. - NEUROLOGIC: Unresponsive Discharge Plan Discharge Attending physician on discharge: Debi Royal Consulting providers: Melinda Crum ; Dmitriy Gleason ; Rick Mojica ; Aleksandar Agudelo V. ; Dimitri Krishnan Discharging Clinician: Debi Royal Anticipated Discharge Date/Time: 07/03/20 13:53 Patient Disposition: Hospice - Medical Facility Activity: as tolerated Diet: as tolerated Patient Instructions: Comfort Measures (GEN) Discharge Medications: Continued atorvastatin 40 mg tablet 40 mg PO HS RF: 0 metoprolol succinate 50 mg tablet extended release 24 hr 50 mg PO DAILY RF: 0 levofloxacin 500 mg tablet 500 mg PO DAILY RF: 0 albuterol sulfate 90 mcg/actuation HFA aerosol inhaler 2 puff INHALATION TID RF: 0 aspirin [Adult Aspirin EC Low Strength] 81 mg Tablet,Delayed Release (Dr/Ec) 81 mg PO DAILY RF: 0 Date of admission: 06/06/20 20:07 Primary Care Provider: Aubrey,Yonatan Crews Admitting Provider: Ha Saleem Attending physician on admission: Debi Royal Condition: Guarded Prognosis
== END 2020-06-11 19:15 | disposition hospice, inpatient (51) | DRG 177 ==
LOC: ANHED 20:11 → ANHIMU 06-07 10:32 → ANH3MEDSUR 06-09 10:17 → ANHIMU 06-14 13:25
PROVIDERS: Student in an Organized Health Care Education/Training Program; Admitting Provider Family Medicine; Emergency Provider Emergency Medicine; PCP Internal Medicine; Visit Provider Family Medicine
DX: U07.1 COVID-19; J96.01 Acute respiratory failure with hypoxia; J12.89 Other viral pneumonia; C34.12 Malignant neoplasm of upper lobe, left bronchus or lung; J44.1 Chronic obstructive pulmonary disease with (acute) exacerbation; J44.0 Chronic obstructive pulmonary disease with (acute) lower respiratory infection; R54 Age-related physical debility; Z51.5 Encounter for palliative care; Z66 Do not resuscitate; I25.10 Atherosclerotic heart disease of native coronary artery without angina pectoris; I10 Essential (primary) hypertension; E78.00 Pure hypercholesterolemia, unspecified; Z79.82 Long term (current) use of aspirin; Z79.899 Other long term (current) drug therapy; Z86.79 Personal history of other diseases of the circulatory system; Z87.891 Personal history of nicotine dependence; Z95.1 Presence of aortocoronary bypass graft
CPT/HCPCS: 36415; 36600; 71045; 71275; 80048; 80076; 82375; 82805; 83050; 83735; 83880; 84460; 84484; 85025; 85055; 85380; 86140; 86900; 86901; 87635; 93005; 94003; 94640; 99285; A9270; C9803; J1100; J2060; J2270; J2920; Q9967; U0003

== ENCOUNTER 2020-06-11 19:19 | HOS | payer OTHER, SELFPAY ==
--- OUTSIDE RECORDS SUMMARY | 2020-06-11 19:27 | XMS_ITS ---
:1940 Author Care Team Providers Name Role Phone DR. RICHARD GUZMAN Primary Care Provider [phone] Allergies Code Code System Name Reaction Severity Status Onset Adhesive Tape Rash ? Active ? 29833 RxNorm Percocet ? ? Active ? Notes: pt states he does not hav e any allergies, leaving these meds listed as a precaution Medications Name Status Start Date Stop Date ? ? albuterol sulfate HFA 90 mcg/actuation aerosol inhaler Active ? Not available Inhale 2 puffs every 4 hours by inhalation route for 14 days. aspirin 325 mg tablet Active ? Not availa ble Take 1 tablet every day by oral route. Asprin Ec Low Dose Completed ? 08/12/2015 one tablet by mouth daily atorvastatin 40 mg tablet Active ? Not av ailable cephalexin 500 mg capsule Completed ? 2019 TAKE 1 CAPSULE BY MOUTH EVERY 8 HOURS FOR 10 DAYS FOR INFECTIOU S PROCESS clonazepam 1 mg tablet Unknown ? Not avail able Take 1 tablet twice a day by oral route. clopidogrel 75 mg tablet Unknown ? Not ronny ilable Take 1 tablet every day by oral route. docusate sodium 100 mg capsule Unknown ? N ot available Take 1 capsule twice a day by oral route. fluorouracil 5 % topical cream Active ? N ot available APPLY CREAM TOPICALLY TWICE DAILY Fluzone High-Dose 0710-6850 (PF) 180 Unknown ? Not available mcg/0.5 mL intramuscular syringe Fluzone High-Dose (PF) 180 Unknown ? Not available
--- OUTSIDE RECORDS SUMMARY | 2020-06-11 19:27 | XMS_ITS | Encounter Summary ---
:1940 Author Care Team Providers Name Role Phone Dr. Yonatan Burgos Primary Care Provider [phone] Reason for Visit Routine follow up Assessment and Plan 1. Essential hypertension under control, ? metoprolol succinate ER 50 mg tablet,extended release 24 hr ? CMP, serum or plasma 2. Hyperlipidemia stable, labs good 03/30 ? atorvastatin 40 mg tablet ? lipid panel, serum 3. Anxiety state stable 4. Peripheral arterial occlusive disease s/p stents, seen cardiology, g ets dopplers 5. Coronary arteriosclerosis s/p CABG 12/24 6. Abdominal aortic aneurysm S/P repair 03/26, gets CT scans 7. Ex-smoker quit in 2014 8. Dysphagia EGD 02/24, Barium swallow mild penetration, no symptoms, watch 9. Insomnia otc melatonin helps 10. Malignant neoplasm of skin no recurrence, seeing derm 11. Peripheral vascular disease mild symptoms 12. Screening for malignant neop lasm of prostate ? PSA, serum or plasma 13. Adult health examination colonoscopy 03/2011 PSA- 03/2019 pneumovax - 02/2016, prevnar 13-- 02/2017
--- OUTSIDE RECORDS SUMMARY | 2020-06-11 19:27 | XMS_ITS | Encounter Summary ---
:1940 Author Care Team Providers Name Role Phone Dr. Yonatan Burgos Primary Care Provider [phone] Reason for Visit Left leg pain Assessment and Plan 1. Injury of lower leg to get arterial and venous dop plers done at cardiology ? XR, tibia + fibula Discussion Note: None recorded.Patient educational handouts: No information available. Plan of Care Reminders Provider Appointments Routine Devon Burgos, Follow-Up 07/24/2020 10:30AM Lab None ? ? recorded. Referral None ? ? recorded. Procedures None ? ? recorded. Surgeries None ? ? recorded. Imaging XR, Tibia [facility] 05/20/2020 Hospital ([facility] Scheduling) Medications Name Start Date ? ? albuterol sulfate HFA 90 mcg/actuation aerosol inhaler ? Inhale 2 puffs every 4 hours by inhalation route for 14 days. aspirin 325 mg tablet ? Take 1 tablet every day by oral route. atorvastatin 40 mg tablet ? Take 1 tablet every day by oral route for 90 days. fluorouracil 5 % topical cream ? APPLY CREAM TOPICALLY TWICE DAILY Levaquin 500 mg tablet ? Take 1 tablet every 24 hours by oral route for 7 days . metoprolol succinate ER 50 mg tablet,extended release 24 hr ? Miguel
--- OUTSIDE RECORDS SUMMARY | 2020-06-11 19:27 | XMS_ITS | Encounter Summary ---
:1940 Author Care Team Providers Name Role Phone Dr. Yonatan Burgos Primary Care Provider [phone] Reason for Visit uri Assessment and Plan 1. Acute bronchitis ? Levaquin 500 mg tablet ? albuterol sulfate HFA 90 m cg/actuation aerosol inhaler Discussion Note: None recorded.Patient educational handouts: No information available. Plan of Care Reminders Provider Appointments Routine Devon Burgos, Follow-Up 07/24/2020 10:30AM Lab None ? ? recorded. Referral None ? ? recorded. Procedures None ? ? recorded. Surgeries None ? ? recorded. Imaging None ? ? recorded. Medications Name Start Date ? ? albuterol [...] 50 mg tablet,extended release 24 hr ? Take 1 tablet every day by oral route for 90 days. Medications Administered None recorded. Vitals
[2020-06-11 19:30] VITALS: BP 100/60; PULSE 100; RESP 20; O2SAT 86
[2020-06-11 20:00] VITALS: O2SAT 86
[2020-06-11] MEDS: MORPHINE SULFATE INJ (*CRX) 50 MG in SODIUM CHLORIDE 0.9% IV 95 ML IV CONT (20:55)
[2020-06-11] MEDS: MORPHINE SULFATE (*CRX) 2 MG/ML INJ IV PUSH (21:01)
[2020-06-11 23:36] VITALS: BMI 23.3
[2020-06-12 08:00] VITALS: BP 135/84; PULSE 115; RESP 20; TEMP 35.7; O2SAT 85
[2020-06-12] MEDS: LORazepam INJ (*CRX) 2 MG/ML VIAL 1 MG IV PUSH (15:31)
--- NOTE | 2020-06-12 17:49 | PM.IMHP ---
H&P: HPI History of Present Illness Date/Time: 06/12/20 17:49 Chief complaint: COVID-19 Narrative: Anthony Agrawal is a 80 year old male who presented 06/06 with 10 days of cough, hemoptysis, fatigue, and increasing dyspnea. By admission, he was dyspneic with minimal exertion. He also complained of pleuritic chest pain. CTA chest revealed a 6.8 x 5.1 cm left perihilar mass and a 2.1 cm right adrenal mass. He was admitted for oxygen and symptomatic therapy. Upon 06/08, SARS-CoV-2 was reported as POSITIVE and dexamethasone, remdesivir, and convalescent plasma were initiated. Because of continued decline, patient and family opted for comfort care only on 06/08/20 in the PM. Due to uncontrolled dyspnea, he was admitted to inpatient hospice on 06/11/20 in the PM. Review of Systems Review of Systems: ROS unobtainable: Yes unobtainable due to medical condition PMFSH Past Medical History Medical History (Updated 06/12/20 @ 17:52 by Fan Van MD) AAA (abdominal aortic aneurysm) CAD (coronary artery disease) COPD (chronic obstructive pulmonary disease) H/O: HTN (hypertension) Hypercholesterolemia Surgical History Surgical History H/O neck surgery History of AAA (abdominal aortic aneurysm) repair Hx of CABG Family History Family History (Updated 06/06/20 @ 22:29 by Karmen Umanzor RN) Other Unknown family medical history Social History Social History Smoking packs per day: 1 Smoking cigarettes per day: 20.0 Years smoked: 15 Smoking pack-years: 15.00 Smoking status: Former smoker Alcohol intake: never Substance use: never Gender identity (if verbalized by the patient): Male Spiritual care concerns: No Meds Home Medications and Allergies Home Medications Medication Instructions Recorded Confirmed Type albuterol sulfate 2 puff INHALATION TID 06/06/20 06/06/20 History aspirin [Adult Aspirin EC Low 81 mg PO DAILY 06/06/20 06/06/20 History Strength] atorvastatin 40 mg PO HS 06/06/20 06/06/20 History levofloxacin 500 mg PO DAILY 06/06/20 06/06/20 History metoprolol succinate 50 mg PO DAILY 06/06/20 06/06/20 History Allergies Allergy/AdvReac Type Severity Reaction Status Date / Time No Known Allergies Allergy Verified 06/06/20 17:54 Vital Signs Vital Signs - 24 hr 06/11/20 19:30 06/11/20 20:00 06/12/20 08:00 Temperature 96.2 F L Pulse Rate 100 115 H Respiratory Rate 20 20 Blood Pressure 100/60 135/84 Pulse Oximetry 86 L 86 L 85 L Exam Narrative: Exam Narrative: HEENT: Pupils meiotic, sclerae nonicteric, pharyngeal mucosa pink and dry NECK: No JVD CHEST: Coarse BS, normal effort HEART: NL S1/S2, regular, no murmur ABDOMEN: BS hypoactive, soft, nontender, no mass, no bruits EXTREMITIES: No cyanosis, edema, or clubbing NEUROLOGIC: CN intact and symmetric to inspection. MUSCULOSKELETAL: Tone symmetric PSYCH: Sleeping. Responds only to noxious stimuli. Assessment and Plan Assessment and plan (1) Palliative care by specialist: Code(s): Z51.5 - Encounter for palliative care Status: Acute Assessment and Plan: Meets GIP criteria due to severe dyspnea that requires continuous iv narcotics for adequate control (2) Pneumonia due to COVID-19 virus: Code(s): U07.1 - COVID-19; J12.89 - Other viral pneumonia Status: Acute (3) Acute respiratory failure with hypoxemia: Code(s): J96.01 - Acute respiratory failure with hypoxia Status: Acute (4) Acute exacerbation of chronic obstructive airways disease: Code(s): J44.1 - Chronic obstructive pulmonary disease with (acute) exacerbation Status: Acute (5) Lung mass: Code(s): R91.8 - Other nonspecific abnormal finding of lung field Status: Acute
--- NOTE | 2020-06-12 18:26 | PM.DS ---
DS: Admitting Diagnosis Admitting Diagnosis Admitting Diagnosis: COVID-19 Patient on comfort care measures, will transition to inpatient hospice. Pt is on morphine and ativan. Pt SOB secondary to lung cancer and COVID-19. Pt is comfortable in the room, poor prognosis. frail elderly shallow breathing. DS: Discharge Diagnosis Discharge Diagnosis (1) Palliative care by specialist: Code(s): Z51.5 - Encounter for palliative care Status: Acute Assessment and Plan: Palliative team/ hospice team consulted for lung mass, hypoxia and covid positive patient Pt has been accepted to hospice team today. (3) Lung mass: Code(s): R91.8 - Other nonspecific abnormal finding of lung field Status: Acute Assessment and Plan: -newly found lung cancer with smoking history (4) Acute respiratory failure with hypoxemia: Code(s): J96.01 - Acute respiratory failure with hypoxia Status: Acute Assessment and Plan: Secondary lung cancer and COVID-19 (2) Comfort measures only status: Code(s): Z51.5 - Encounter for palliative care Status: Acute Assessment and Plan: -patient switch to comfort care 06/08/2020 -Ativan and morphine ordered for comfort -on comfort measure family not decided on hospice yet (3) Pneumonia due to COVID-19 virus: Code(s): U07.1 - COVID-19; J12.89 - Other viral pneumonia Status: Acute Assessment and Plan: (2) Pneumonia due to COVID-19 virus: Code(s): U07.1 - COVID-19; J12.89 - Other viral pneumonia DS: Summary Time Spent with Patient Time attestation: Total time spent providing and/or coordinating discharge services:40 minutes on day of dischrage Exam Narrative: Exam Narrative: Exam Narrative: - GENERAL: frail elderly shallow breathing - LUNGS: lung with shallow breathing and retractions - CARDIOVASCULAR: Regular rate and rhythm. - ABDOMEN: Soft, non-tender and non-distended. - NEUROLOGIC: Unresponsive Discharge Plan Discharge Attending physician on discharge: ANTWAN Discharging Clinician: Debi Royal Patient Disposition: Hospice - Medical Facility Activity: as tolerated Diet: as tolerated Discharge Medications: Continued atorvastatin 40 mg tablet 40 mg PO HS RF: 0 metoprolol succinate 50 mg tablet extended release 24 hr 50 mg PO DAILY RF: 0 levofloxacin 500 mg tablet 500 mg PO DAILY RF: 0 albuterol sulfate 90 mcg/actuation HFA aerosol inhaler 2 puff INHALATION TID RF: 0 aspirin [Adult Aspirin EC Low Strength] 81 mg Tablet,Delayed Release (Dr/Ec) 81 mg PO DAILY RF: 0 Date of admission: 06/11/20 19:19 Primary Care Provider: Aubrey,Yonatan Crews Admitting Provider: Fan Van Attending physician on admission: Fan Van
[2020-06-12 20:00] VITALS: BP 134/75; PULSE 104; RESP 10; TEMP 34.8; O2SAT 50; O2SAT 86
[2020-06-12] MEDS: MORPHINE SULFATE INJ (*CRX) 50 MG in SODIUM CHLORIDE 0.9% IV 95 ML IV CONT (20:17)
[2020-06-13] MEDS: MORPHINE SULFATE (*CRX) 2 MG/ML INJ IV PUSH ×2 (03:12→20:04)
[2020-06-13 08:00] VITALS: BP 91/55; PULSE 98; RESP 14; O2SAT 89
[2020-06-13 19:40] VITALS: RESP 16; O2SAT 71
[2020-06-13 20:00] VITALS: BP 122/64; PULSE 77; RESP 16; O2SAT 71
[2020-06-13] MEDS: LORazepam INJ (*CRX) 2 MG/ML VIAL 1 MG IV PUSH (20:04)
[2020-06-13] MEDS: MORPHINE SULFATE INJ (*CRX) 50 MG in SODIUM CHLORIDE 0.9% IV 95 ML IV CONT (20:30)
--- NOTE | 2020-06-13 21:14 | P.PNIM_ITS ---
Progress Note: A&P Assessment and Plan (1) Palliative care by specialist: Code(s): Z51.5 - Encounter for palliative care Status: Acute Assessment and Plan: * Meets GIP criteria due to severe dyspnea that requires continuous iv narcotics for adequate control (2) Pneumonia due to COVID-19 virus: Code(s): U07.1 - COVID-19; J12.89 - Other viral pneumonia Status: Acute (3) Acute respiratory failure with hypoxemia: Code(s): J96.01 - Acute respiratory failure with hypoxia Status: Acute (4) Acute exacerbation of chronic obstructive airways disease: Code(s): J44.1 - Chronic obstructive pulmonary disease with (acute) exacerbation Status: Acute (5) Lung mass: Code(s): R91.8 - Other nonspecific abnormal finding of lung field Status: Acute Subjective Date/time seen: 06/13/20 10:50 Interval history: 06/13 telehealth visit: Remains comfortable. Review of Systems Review of Systems: ROS unobtainable: Yes unobtainable due to medical condition Exam Narrative: Exam Narrative: Breathing comfortably. Hands and feet mottled. Objective Data Vital Signs Vital Signs: Vital Signs - 24 hr 06/13/20 08:00 Pulse Rate 98 Respiratory Rate 14 Blood Pressure 91/55 L Pulse Oximetry 89 L Intake/Output Intake/Output: Intake & Output 06/10/20 06/11/20 06/12/20 06/13/20 23:59 23:59 23:59 23:59 Intake Total 32 Output Total 225 450 Balance -193 -450 Meds/Results Medications: Active Medications Generic Name Dose Route Start Last Admin Trade Name Freq PRN Reason Stop Dose Admin Acetaminophen 650 mg 06/11/20 19:50 Acetaminophen 650 Mg Suppository RECTAL Q4H PRN Fever Artificial Tears 1 drop 06/11/20 19:48 06/11/20 20:54 Artificial Tears Op Soln 15 Ml Bottle EACH EYE 1 drop Q4H PRN Administration Dry Eye(s) Artificial Tears 1 drop 06/13/20 09:00 06/13/20 20:03 Artificial Tears Op Soln 15 Ml Bottle EACH EYE 1 drop Q12H BOBBI Administration Bisacodyl 10 mg 06/11/20 19:50 Bisacodyl 10 Mg Suppository RECTAL DAILY PRN Constipation Glycopyrrolate 0.1 mg 06/11/20 19:49 Glycopyrrolate Inj (*Sp) 0.2 Mg/Ml Vial IV PUSH Q4H PRN INCREASED SECRETIONS Morphine Sulfate 50 mg/ Sodium 100 mls @ 2 mls/hr 06/11/20 19:50 06/12/20 20:17 Chloride IV CONT 1 mg/hr .Q24H BOBBI 2 mls/hr Administration 1 MG/HR Lorazepam 1 mg 06/11/20 19:48 06/13/20 20:04 Lorazepam Inj (*Crx) 2 Mg/Ml Vial IV PUSH 1 mg Q2H PRN Administration Anxiety Morphine Sulfate 2 mg 06/11/20 19:50 06/13/20 20:04 Morphine Sulfate (*Crx) 2 Mg/Ml Inj IV PUSH 2 mg Q2H PRN Administration Pain/SOB Prochlorperazine Edisylate 10 mg 06/11/20 19:48 Prochlorperazine Edisylate 10 Mg/2 Ml Vial IV PUSH Q4H PRN Nausea And Vomiting
--- NOTE | 2020-06-14 08:55 | PC.NURSE ---
This RN to bedside at 0830. Patient noted to be pulseless, no spontaneous respirations and no cornea reflex. Augustina lipscomb RN to bedside to verify time of
--- NOTE | 2020-06-14 11:39 | PC.NURSE ---
patient has home medications here. Discussed with kesha Mast and obtained permission to dispose of medications. medications sent to pharmacy for disposal.
--- NOTE | 2020-06-14 14:35 | PM.DDS ---
Discharge Sum: Prov Provider Primary care physician: Yonatan Burgos, Admitting provider: Fan Van MD Discharge Sum: Diag Contributing Factors (1) Pneumonia due to COVID-19 virus: (2) Acute respiratory failure with hypoxemia: (3) Acute exacerbation of chronic obstructive airways disease: (4) Lung mass: Discharge Sum: Summary Date and Time Date of admission: 06/11/20 19:19 Summary Details: Mr. Agrawal was admitted to inpatient hospice care after failing to respond to therapy for COVID-19 pneumonia. His family opted for comfort measures. Because of uncontrolled dyspnea, he was admitted to the inpatient hospice service. Medications were titrated to comfort. He peacefully. Additional Data Attending physician: Fan Van MD
== END 2020-06-14 08:30 | disposition expired | DRG 177 ==
PROVIDERS: Admitting Provider Internal Medicine; PCP Internal Medicine; Visit Provider Internal Medicine
DX: U07.1 COVID-19 (principal); J12.89 Other viral pneumonia; J96.01 Acute respiratory failure with hypoxia; I25.10 Atherosclerotic heart disease of native coronary artery without angina pectoris; I10 Essential (primary) hypertension; Z51.5 Encounter for palliative care; R91.8 Other nonspecific abnormal finding of lung field
CPT/HCPCS: A9270; J2060; J2270